=== PATIENT | female | born 1995 | race Caucasian/White ===

== ENCOUNTER 2017-03-31 07:02 | Inpatient (IN) | payer BC, OTHER ==
[2017-03-31] MEDS ORDERED: fentaNYL 100 MCG/2 ML SDV IVPUSH PRN (07:20)
[2017-03-31] MEDS ORDERED: Ondansetron 4 MG/2 ML SDV IV PRN (07:20)
[2017-03-31] MEDS ORDERED: Acetaminophen 325 MG Tab PO PRN (07:20)
[2017-03-31] MEDS ORDERED: Calcium Carbonate 500 MG Tab.Chew PO PRN (07:20)
[2017-03-31] MEDS ORDERED: Sodium Chloride 0.9% 10 ML Syringe FLUSH PRN (07:20)
[2017-03-31] MEDS ORDERED: Misoprostol 50 MCG (1/2 of 100 MCG) Tab VAG PRN (07:30)
[2017-03-31] MEDS ORDERED: Misoprostol 50 MCG (1/2 of 100 MCG) Tab ONE (07:45)
[2017-03-31] MEDS ORDERED: Lactated Ringers 500 ML IV ONE (08:00)
[2017-03-31] MEDS: Misoprostol 50 MCG (1/2 of 100 MCG) Tab VAG SCH ×4 (08:14→21:13)
--- NOTE | 2017-03-31 08:34 | PCM.LDHP ---
L&D History of Present Illness - General Date of Service: 03/31/17 (CHRISTIANO-04/04/2017) Admit Problem/Dx: Patient Status Order with Admit Dx/Problem 03/31/17 07:20 Patient Status [ADT] Routine Admission Diagnosis/Problem Admission Diagnosis/Problem Source of Information: Patient History Limitations: Reports: No Limitations - History of Present Illness Improves with: Reports: None Worsens with: Reports: None Associated Symptoms: Reports: N - Related Data Allergies/Adverse Reactions: Allergies Allergy/AdvReac Type Severity Reaction Status Date / Time No Known Allergies Allergy Verified 03/27/17 10:15 Home Medications: Home Meds Vits #93/Iron Fum/FA [ Formula Tablet] 2 tab PO DAILY 03/24/17 [History] Diclofenac Sodium 1 applic TOP BID PRN 03/27/17 [History] Past Medical History - Past Health History Medical/Surgical History: Denies Medical/Surgical History HEENT History: Reports: Impaired 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: Reports: (CHRISTIANO-04/04/2017) : 2 Para: 0 Musculoskeletal History: Reports: Neck Pain, Chronic Other Musculoskeletal History: neck pain - Infectious Disease History Infectious Disease History: Reports: Chicken Pox - Past Surgical History HEENT Surgical History: Reports: None GI Surgical History: Reports: Hernia, Inguinal Musculoskeletal Surgical History: Reports: None Social & Family History - Family History Family Medical History: Noncontributory - Tobacco Use Smoking Status *Q: Never Smoker Second Hand Smoke Exposure: No - Alcohol Use Days Per Week of Alcohol Use: 0 - Recreational Drug Use Recreational Drug Use: No - Living Situation & Occupation Living situation: Reports: Single Occupation: Student H&P Review of Systems - Review of Systems: Review Of Systems: See Below General: Reports: No Symptoms HEENT: Reports: No Symptoms Pulmonary: Reports: No Symptoms Cardiovascular: Reports: No Symptoms Gastrointestinal: Reports: No Symptoms Genitourinary: Reports: No Symptoms Musculoskeletal: Reports: No Symptoms Skin: Reports: No Symptoms Psychiatric: Reports: No Symptoms Neurological: Reports: No Symptoms Hematologic/Lymphatic: Reports: No Symptoms Immunologic: Reports: No Symptoms L&D Exam - Exam Exam: See Below - Vital Signs Weight: 85.275 kg - OB Specific Contraction Intensity: Mild Movement: Active Heart Tones: Present Heart Rate (FHR) Variability: Moderate (6-25 bmp) Presentation: Vertex Estimated Weight: 8lbs 8oz - Bell Score Bell Score Cervix Position: Posterior Bell Score Consistency: Soft Bell Score Effacement: 31-50% Bell Score Dilation: Closed Bell Score Infant's Station: -3 Bell Score Total: 3 - Exam General: Alert, Oriented HEENT: PERRLA, Conjunctiva Clear, EACs Clear, EOMI, Hearing Intact, Mucosa Moist & [place], Nares Patent, Normal Nasal Septum, Posterior Pharynx Clear, Pupils Equal, Pupils Reactive, TMs Clear Neck: Supple, Trachea Midline Lungs: Clear to Auscultation, Normal Respiratory Effort Cardiovascular: Regular Rate, Regular Rhythm Abdomen: Normal Bowel Sounds, Soft, Pelvis Stable Genitourinary: Normal external exam, Normal bimanual exam Back Exam: Normal Inspection, Full Range of Motion Extremities: Normal Inspection Skin: Warm, Dry, Intact Neurological: Cranial Nerves Intact, Reflexes Equal Bilateral DTR: 2+: Patella (L), Patella (R) Psychiatric: Alert, Normal Affect, Normal Mood - Patient Data Lab Results Last 24 hrs: Laboratory Results - last 24 hr 03/31/17 Range/Units 07:40 WBC 13.9 H (4.5-11.0) K/uL RBC 4.68 (3.30-5.50) M/uL Hgb 13.5 (12.0-15.0) g/dL Hct 40.1 (36.0-48.0) % MCV 86 (80-98) fL MCH 29 (27-31) pg MCHC 34 (32-36) % Plt Count 345 (150-400) K/uL Neut % (Auto) 69 H (36-66) % Lymph % (Auto) 22 L (24-44) % [place] % (Auto) 8 H (2-6) % Eos % (Auto) 1 L (2-4) % Baso % (Auto) 0 (0-1) % Result Diagrams: 03/31/17 07:40 - Problem List (1) Elective induction of labor planned SNOMED Code(s): 782723411 ICD Code: [id number] - Status: Acute Current Visit: No (2) SNOMED Code(s): 01047011 ICD Code: Z33.1 - STATE, INCIDENTAL Status: Acute Current Visit : No Qualifiers: Weeks of gestation: 39 weeks Qualified Code(s): Z3A.39 - 39 weeks gestation of (3) Unstable lie of fetus SNOMED Code(s): 29591111 ICD Code: O32.0XX0 - MATERNAL CARE FOR UNSTABLE LIE, NOT APPLICABLE OR UNSP Status: Acute Current Visit: No Qualifiers: Fetus number: single or unspecified fetus Qualified Code(s): O32.0XX0 - Maternal care for unstable lie, not applicable or unspecified Problem List Initiated/Reviewed/Updated: Yes Orders Last 24hrs: Active Orders 24 hr Category Date Time Status Patient Status [ADT] Routine ADT 03/31/17 07:20 Active Ambulate [RC] PER UNIT ROUTINE Care 03/31/17 07:20 Active Communication Order [RC] ASDIRECTED Care 03/31/17 07:20 Active Heart Tones [RC] PER UNIT ROUTINE Care 03/31/17 07:20 Active May Shower [RC] ASDIRECTED Care 03/31/17 07:20 Active Notify Provider Vital Signs [RC] PRN Care 03/31/17 07:20 Active Notify Provider [RC] PRN Care 03/31/17 07:20 Active Up ad Jia [RC] ASDIRECTED Care 03/31/17 07:20 Active Up to Chair [RC] QID Care 03/31/17 07:20 Active VTE/DVT Education [RC] Click to Edit Care 03/31/17 07:24 Active Vital Signs [RC] PER UNIT ROUTINE Care 03/31/17 07:20 Active DRUG SCREEN, URINE [URCHEM] Routine Lab 03/31/17 07:20 Uncollected UA W/MICROSCOPIC [URIN] Routine Lab 03/31/17 07:20 Uncollected Acetaminophen [Tylenol] Med 03/31/17 07:20 Active 650 mg PO Q4H PRN Calcium Carbonate [Tums] Med 03/31/17 07:20 Active 1,000 mg PO Q2H PRN Lactated Ringers [Ringers, Lactated] 500 ml Med 03/31/17 08:00 Active IV ASDIRECTED Misoprostol [Cytotec] Med 03/31/17 08:00 Active 50 mcg VAG Q4H Ondansetron [Zofran] Med 03/31/17 07:20 Active 4 mg IV Q4H PRN Sodium Chloride 0.9% [Saline Flush] Med 03/31/17 07:20 Active 10 ml FLUSH ASDIRECTED PRN fentaNYL [Sublimaze] Med 03/31/17 07:20 Active 100 mcg IVPUSH Q1H PRN DVT/VTE Prophylaxis Reflex [OM.PC] Routine Oth 03/31/17 07:20 Ordered Saline Lock Insert [OM.PC] Routine Oth 03/31/17 07:20 Ordered Resuscitation Status Routine Resus Stat 03/31/17 07:20 Ordered Medication Orders Acetaminophen (Tylenol) 650 mg PO Q4H PRN PRN Reason: Pain (Mild 1-3) and fever Calcium Carbonate/Glycine (Tums) 1,000 mg PO Q2H PRN PRN Reason: Indigestion Fentanyl (Sublimaze) 100 mcg IVPUSH Q1H PRN PRN Reason: Pain (moderate 4-6) Lactated Ringer's (Ringers, Lactated) 500 mls @ 999 mls/hr IV ASDIRECTED ONE Stop: 03/31/17 08:30 Misoprostol (Cytotec) 50 mcg VAG Q4H SHIRA Last Admin: 03/31/17 08:14 Dose: 50 mcg Ondansetron HCl (Zofran) 4 mg IV Q4H PRN PRN Reason: Nausea/Vomiting Sodium Chloride (Saline Flush) 10 ml FLUSH ASDIRECTED PRN PRN Reason: Keep Vein Open Assessment/Plan Comment:: 03/31/2017 21 yo here at 39 3/7 gestational weeks here for an elective induction. Fetus has had unstable lie and has been breech, transverse, and is now US documented vertex so went on and decided to induce while in proper position. Patient agrees with this plan of care SVE-0/30-40%/-3--4 Bishops Score-3 Cytotec 50 mcg placed vaginally at 0815 Labs-Opositive, GBS negative, Rubella Immune, RPR nonreactive, Hep B negative, HIV negative, Hgb-13.5 Plan- Monitor for active labor Intermittent monitoring Up and about for activity Patient may eat regular diet Pain management per patient request If no active labor will place another cytotec in four hours Plan for a vaginal delivery
--- NOTE | 2017-03-31 12:50 | PCM.PNLD ---
Labor Progress Note - VS & Meds Vital Signs: Last Vital Signs Temp 36.2 C 03/31/17 07:20 Pulse 90 03/31/17 09:30 Resp 14 03/31/17 09:30 BP 130/77 03/31/17 09:30 Pulse Ox 96 03/31/17 07:20 Active Medications: Current Medications Acetaminophen (Tylenol) 650 mg PO Q4H PRN PRN Reason: Pain (Mild 1-3) and fever Calcium Carbonate/Glycine (Tums) 1,000 mg PO Q2H PRN PRN Reason: Indigestion Fentanyl (Sublimaze) 100 mcg IVPUSH Q1H PRN PRN Reason: Pain (moderate 4-6) Misoprostol (Cytotec) 50 mcg VAG Q4H SHIRA Last Admin: 03/31/17 12:39 Dose: 50 mcg Ondansetron HCl (Zofran) 4 mg IV Q4H PRN PRN Reason: Nausea/Vomiting Sodium Chloride (Saline Flush) 10 ml FLUSH ASDIRECTED PRN PRN Reason: Keep Vein Open Discontinued Medications Lactated Ringer's (Ringers, Lactated) 500 mls @ 999 mls/hr IV ASDIRECTED ONE Stop: 03/31/17 08:30 Last Admin: 03/31/17 07:48 Dose: 999 mls/hr Misoprostol (Cytotec) 50 mcg VAG Q4H PRN PRN Reason: LABOR INDUCTION Misoprostol (Cytotec) Confirm Administered Dose 50 mcg .ROUTE .STK-MED ONE Stop: 03/31/17 07:46 Last Admin: 03/31/17 08:40 Dose: Not Given - Uterine Contractions Uterine Monitoring Mode: External [place] Contraction Frequency (min): 3-4 Contraction Duration (sec): 80-120 Contraction Intensity: Mild to Moderate Uterine Resting Tone: Soft - Monitoring Monitor Mode: External Ultrasound Heart Rate (FHR) Variability: Moderate (6-25 bmp) - Vaginal Exam Dilation (cm): 0 Effacement (Percent): 50 Station: Ballotable Cervical Position: Midposition Sterile Vaginal Exam Performed By: Kacey Villatoro - Labor Progress (Free Text) Labor Progress: 03/31/2017 SVE-0/50%/-3--4(ballotable) Patient doing well after first dose of cytotec. Second dose placed during SVE Starting to have some regular contractions-patient rating them a 2 on pain scale Has been up and about and on the ball Eating a regular diet FHTs category one Plan- Continue to monitor for active labor Continue to monitor heart tones Continue up and about activity Pain management per patient request Plan for and anticipate a vaginal delivery
[2017-03-31] MEDS ORDERED: Zolpidem 5 MG Tab PO PRN (16:55)
--- NOTE | 2017-03-31 16:55 | PCM.PNLD ---
Labor Progress Note - VS & Meds Vital Signs: Last Vital Signs Temp 37.1 C 03/31/17 15:38 Pulse 106 H 03/31/17 15:38 Resp 16 03/31/17 15:38 BP 140/82 03/31/17 15:38 Pulse Ox 97 03/31/17 12:00 Active Medications: Current Medications Acetaminophen (Tylenol) 650 mg PO Q4H PRN PRN Reason: Pain (Mild 1-3) and fever Calcium Carbonate/Glycine (Tums) 1,000 mg PO Q2H PRN PRN Reason: Indigestion Fentanyl (Sublimaze) 100 mcg IVPUSH Q1H PRN PRN Reason: Pain (moderate 4-6) Misoprostol (Cytotec) 50 mcg VAG Q4H SHIRA Last Admin: 03/31/17 12:39 Dose: 50 mcg Ondansetron HCl (Zofran) 4 mg IV Q4H PRN PRN Reason: Nausea/Vomiting Sodium Chloride (Saline Flush) 10 ml FLUSH ASDIRECTED PRN PRN Reason: Keep Vein Open Discontinued Medications Lactated Ringer's (Ringers, Lactated) 500 mls @ 999 mls/hr IV ASDIRECTED ONE Stop: 03/31/17 08:30 Last Admin: 03/31/17 07:48 Dose: 999 mls/hr Misoprostol (Cytotec) 50 mcg VAG Q4H PRN PRN Reason: LABOR INDUCTION Misoprostol (Cytotec) Confirm Administered Dose 50 mcg .ROUTE .STK-MED ONE Stop: 03/31/17 07:46 Last Admin: 03/31/17 08:40 Dose: Not Given - Uterine Contractions Uterine Monitoring Mode: External [place] Contraction Frequency (min): 1-2 Contraction Duration (sec): 70-90 Contraction Intensity: Mild to Moderate Uterine Resting Tone: Soft - Monitoring Monitor Mode: External Ultrasound Heart Rate (FHR) Variability: Moderate (6-25 bmp) - Vaginal Exam Dilation (cm): 0 Effacement (Percent): 50 Station: Ballotable Cervical Position: Midposition Sterile Vaginal Exam Performed By: Kacey Villatoro - Labor Progress (Free Text) Labor Progress: 03/31/2017 SVE unchanged [place] tachystole at this time so no more cytotec placed Patient tolerating contractions FHTs remain a category one Plan- Continue to monitor for active labor Continue to monitor FHTs Give IV fluid bolus now Pain management per patient request Will initiate Pitocin later when contraction pattern is not tachystole Anticipate and plan for a vaginal delivery
[2017-03-31] MEDS ORDERED: Lactated Ringers 1,000 ML IV ONE (17:00)
[2017-03-31] MEDS ORDERED: Lactated Ringers 500 ML IV SCH (18:45)
--- NOTE | 2017-03-31 21:00 | PCM.PNLD ---
Labor Progress Note - VS & Meds Vital Signs: Last Vital Signs Temp 36.7 C 03/31/17 19:30 Pulse 81 03/31/17 19:30 Resp 18 03/31/17 19:30 BP 141/75 H 03/31/17 19:30 Pulse Ox 97 03/31/17 19:30 Active Medications: Current Medications Acetaminophen (Tylenol) 650 mg PO Q4H PRN PRN Reason: Pain (Mild 1-3) and fever Calcium Carbonate/Glycine (Tums) 1,000 mg PO Q2H PRN PRN Reason: Indigestion Fentanyl (Sublimaze) 100 mcg IVPUSH Q1H PRN PRN Reason: Pain (moderate 4-6) Oxytocin/Sodium Chloride (Pitocin In Ns 20 Units/1,000 Ml) 20 unit in 1,000 mls @ 6 mls/hr IV TITRATE SHIRA; 2 MUNITS/MIN PRN Reason: Protocol Lactated Ringer's (Ringers, Lactated) 500 mls @ 999 mls/hr IV ASDIRECTED SHIRA Misoprostol (Cytotec) 50 mcg VAG Q4H SHIRA Last Admin: 03/31/17 17:20 Dose: Not Given Ondansetron HCl (Zofran) 4 mg IV Q4H PRN PRN Reason: Nausea/Vomiting Sodium Chloride (Saline Flush) 10 ml FLUSH ASDIRECTED PRN PRN Reason: Keep Vein Open Zolpidem Tartrate (Ambien) 10 mg PO BEDTIME PRN PRN Reason: Sleep Stop: 04/01/17 22:00 Discontinued Medications Lactated Ringer's (Ringers, Lactated) 500 mls @ 999 mls/hr IV ASDIRECTED ONE Stop: 03/31/17 08:30 Last Admin: 03/31/17 07:48 Dose: 999 mls/hr Lactated Ringer's (Ringers, Lactated) 1,000 mls @ 999 mls/hr IV BOLUS ONE Stop: 03/31/17 18:00 Last Admin: 03/31/17 17:32 Dose: 999 mls/hr Misoprostol (Cytotec) 50 mcg VAG Q4H PRN PRN Reason: LABOR INDUCTION Misoprostol (Cytotec) Confirm Administered Dose 50 mcg .ROUTE .STK-MED ONE Stop: 03/31/17 07:46 Last Admin: 03/31/17 08:40 Dose: Not Given - Uterine Contractions Uterine Monitoring Mode: External [place] Contraction Frequency (min): 1-1.5 Contraction Duration (sec): 90 Contraction Intensity: Mild to Moderate Uterine Resting Tone: Soft - Monitoring Monitor Mode: External Ultrasound Heart Rate (FHR) Variability: Moderate (6-25 bmp) - Vaginal Exam Dilation (cm): 0 Effacement (Percent): 50 Station: Ballotable Cervical Position: Midposition Sterile Vaginal Exam Performed By: Kacey Villatoro - Labor Progress (Free Text) Labor Progress: 03/31/2017 SVE again unchanged Contraction pattern tachystole still FHTs category one but at times is a category two with minimal variability Pain well controlled and mainly in her back Position of baby is now OP Plan- Going to have patient take a tub bath and then an Ambien to rest Continue to monitor for active labor Continue to monitor FHTs Will let patient rest then start Pitocin at 0400 Plan and anticipate vaginal delivery
[2017-03-31] MEDS ORDERED: cefTRIAXone 2 GM in Sodium Chloride 0.9% 50 ML IV SCH (22:00)
--- NOTE | 2017-04-01 04:22 | PCM.PNLD ---
Labor Progress Note - VS & Meds Vital Signs: Last Vital Signs Temp 36.7 C 03/31/17 19:30 Pulse 81 03/31/17 19:30 Resp 18 03/31/17 19:30 BP 141/75 H 03/31/17 19:30 Pulse Ox 97 03/31/17 19:30 Active Medications: Current Medications Acetaminophen (Tylenol) 650 mg PO Q4H PRN PRN Reason: Pain (Mild 1-3) and fever Calcium Carbonate/Glycine (Tums) 1,000 mg PO Q2H PRN PRN Reason: Indigestion Cephalexin (Keflex) 500 mg PO BID SHIRA Fentanyl (Sublimaze) 100 mcg IVPUSH Q1H PRN PRN Reason: Pain (moderate 4-6) Oxytocin/Sodium Chloride (Pitocin In Ns 20 Units/1,000 Ml) 20 unit in 1,000 mls @ 6 mls/hr IV TITRATE SHIRA; 2 MUNITS/MIN PRN Reason: Protocol Last Admin: 04/01/17 04:11 Dose: 2 munits/min, 6 mls/hr Lactated Ringer's (Ringers, Lactated) 500 mls @ 999 mls/hr IV ASDIRECTED SHIRA Ceftriaxone Sodium 2 gm/ (Sodium Chloride) 50 mls @ 100 mls/hr IV Q24H SHIRA Last Admin: 03/31/17 22:16 Dose: 100 mls/hr Ondansetron HCl (Zofran) 4 mg IV Q4H PRN PRN Reason: Nausea/Vomiting Sodium Chloride (Saline Flush) 10 ml FLUSH ASDIRECTED PRN PRN Reason: Keep Vein Open Zolpidem Tartrate (Ambien) 10 mg PO BEDTIME PRN PRN Reason: Sleep Stop: 04/01/17 22:00 Last Admin: 03/31/17 21:14 Dose: 10 mg Discontinued Medications Lactated Ringer's (Ringers, Lactated) 500 mls @ 999 mls/hr IV ASDIRECTED ONE Stop: 03/31/17 08:30 Last Admin: 03/31/17 07:48 Dose: 999 mls/hr Lactated Ringer's (Ringers, Lactated) 1,000 mls @ 999 mls/hr IV BOLUS ONE Stop: 03/31/17 18:00 Last Admin: 03/31/17 17:32 Dose: 999 mls/hr Misoprostol (Cytotec) 50 mcg VAG Q4H PRN PRN Reason: LABOR INDUCTION Misoprostol (Cytotec) Confirm Administered Dose 50 mcg .ROUTE .STK-MED ONE Stop: 03/31/17 07:46 Last Admin: 03/31/17 08:40 Dose: Not Given Misoprostol (Cytotec) 50 mcg VAG Q4H [facility] Last Admin: 03/31/17 21:13 Dose: Not Given - Uterine Contractions Uterine Monitoring Mode: External [place] Contraction Frequency (min): 0 Contraction Duration (sec): 90 Contraction Intensity: Mild to Moderate Uterine Resting Tone: Soft - Monitoring Monitor Mode: External Ultrasound Heart Rate (FHR) Variability: Moderate (6-25 bmp) - Vaginal Exam Dilation (cm): 0 Effacement (Percent): 50 Station: Ballotable Cervical Position: Midposition Sterile Vaginal Exam Performed By: Kacey Villatoro - Labor Progress (Free Text) Labor Progress: 04/01/2017 SVE-dimple/60%/-4 not as ballotable Patient was able to rest for a few hours Contraction pattern more stable FHTs category one at most times, occasional category two due to decrease in variability Patient states pain mostly in her back Plan- Continue to monitor for labor Continue to monitor FHTs Initiate Pitocin per protocol CBC this am Pain management per patient request Plan and anticipate a vaginal delivery
--- NOTE | 2017-04-01 06:57 | PCM.PNLD ---
Labor Progress Note - VS & Meds Vital Signs: Last Vital Signs Temp 37.2 C 04/01/17 04:10 Pulse 113 H 04/01/17 06:00 Resp 16 04/01/17 06:00 BP 138/83 04/01/17 06:00 Pulse Ox 96 04/01/17 06:00 Active Medications: Current Medications Acetaminophen (Tylenol) 650 mg PO Q4H PRN PRN Reason: Pain (Mild 1-3) and fever Calcium Carbonate/Glycine (Tums) 1,000 mg PO Q2H PRN PRN Reason: Indigestion Cephalexin (Keflex) 500 mg PO BID SHIRA Fentanyl (Sublimaze) 100 mcg IVPUSH Q1H PRN PRN Reason: Pain (moderate 4-6) Oxytocin/Sodium Chloride (Pitocin In Ns 20 Units/1,000 Ml) 20 unit in 1,000 mls @ 6 mls/hr IV TITRATE SHIRA; 2 MUNITS/MIN PRN Reason: Protocol Last Titration: 04/01/17 06:10 Dose: 15 mls/hr Lactated Ringer's (Ringers, Lactated) 500 mls @ 999 mls/hr IV ASDIRECTED SHIRA Last Admin: 04/01/17 06:44 Dose: 999 mls/hr Ceftriaxone Sodium 2 gm/ (Sodium Chloride) 50 mls @ 100 mls/hr IV Q24H SHIRA Last Admin: 03/31/17 22:16 Dose: 100 mls/hr Ondansetron HCl (Zofran) 4 mg IV Q4H PRN PRN Reason: Nausea/Vomiting Sodium Chloride (Saline Flush) 10 ml FLUSH ASDIRECTED PRN PRN Reason: Keep Vein Open Zolpidem Tartrate (Ambien) 10 mg PO BEDTIME PRN PRN Reason: Sleep Stop: 04/01/17 22:00 Last Admin: 03/31/17 21:14 Dose: 10 mg Discontinued Medications Lactated Ringer's (Ringers, Lactated) 500 mls @ 999 mls/hr IV ASDIRECTED ONE Stop: 03/31/17 08:30 Last Admin: 03/31/17 07:48 Dose: 999 mls/hr Lactated Ringer's (Ringers, Lactated) 1,000 mls @ 999 mls/hr IV BOLUS ONE Stop: 03/31/17 18:00 Last Admin: 03/31/17 17:32 Dose: 999 mls/hr Misoprostol (Cytotec) 50 mcg VAG Q4H PRN PRN Reason: LABOR INDUCTION Misoprostol (Cytotec) Confirm Administered Dose 50 mcg .ROUTE .STK-MED ONE Stop: 03/31/17 07:46 Last Admin: 03/31/17 08:40 Dose: Not Given Misoprostol (Cytotec) 50 mcg VAG Q4H [facility] Last Admin: 03/31/17 21:13 Dose: Not Given - Uterine Contractions Uterine Monitoring Mode: External [place] Contraction Frequency (min): 2-5 Contraction Duration (sec): 90 Contraction Intensity: Mild Uterine Resting Tone: Soft - Monitoring Monitor Mode: External Ultrasound Heart Rate (FHR) Variability: Moderate (6-25 bmp) - Vaginal Exam Dilation (cm): 0 Effacement (Percent): 50 Station: Ballotable Cervical Position: Midposition Sterile Vaginal Exam Performed By: Kacey Villatoro Vaginal Exam Comment: fingertip - Labor Progress (Free Text) Labor Progress: 04/01/2017 SVE no change since last SVE-head ballotable again FHTs now a category two with no accelerations and minimal variability Contractions regular-patient states she does not feel them Interventions to make FHTs improve not working-decision made to proceed to C- Section Dr. Rodriguez aware and OR team called Plan- Will proceed with a primary IV bolus of LR to continue for FHTs category two May [address] O2 if needed Pitocin to be stopped at this time
[2017-04-01] MEDS ORDERED: cefOXitin 1 GM Vial ONE (07:12)
[2017-04-01] MEDS ORDERED: Oxytocin 10 Units/1 ML SDV ONE ×2 (07:12→07:15)
[2017-04-01] MEDS ORDERED: Sodium Chloride 0.9% 0 ML ONE (07:14)
[2017-04-01] MEDS ORDERED: ePHEDrine 50 MG/ML SDV ONE (07:15)
[2017-04-01] MEDS ORDERED: cefOXitin 2 GM Vial ONE (07:40)
[2017-04-01] MEDS ORDERED: Naloxone 0.4 MG/ML SDV IV PRN (07:42)
[2017-04-01] MEDS ORDERED: HYDROmorphone/Normal Saline 15 MG/30 ML PCA IV PRN (07:42)
[2017-04-01] MEDS ORDERED: Lactated Ringers 1,000 ML ONE (07:53)
[2017-04-01] MEDS ORDERED: Ondansetron 4 MG/2 ML SDV ONE (07:59)
[2017-04-01] MEDS: cefOXitin 2 GM in Sodium Chloride 0.9% 50 ML IV SCH ×3 (11:31→21:18)
[2017-04-01] MEDS: Dextrose 5%-Lactated Ringers 1,000 ML IV SCH ×2 (13:49→19:29)
[2017-04-01] MEDS ORDERED: Cephalexin 250 MG Cap PO SCH (21:00)
[2017-04-01] MEDS: Acetaminophen/HYDROcodone 325-5 MG Tab PO PRN (21:18)
[2017-04-02] MEDS: Acetaminophen/HYDROcodone 325-5 MG Tab PO PRN ×4 (02:55→19:20)
[2017-04-02] MEDS: cefOXitin 2 GM in Sodium Chloride 0.9% 50 ML IV SCH ×4 (03:51→23:08)
[2017-04-02] MEDS: Ibuprofen 600 MG Tab PO PRN ×2 (08:00→19:38)
[2017-04-02] MEDS ORDERED: Magnesium Hydroxide 400 MG/5 ML Susp 30 ML Cup PO ONE ×2 (09:56→10:00)
[2017-04-02] MEDS ORDERED: Levofloxacin/Dextrose 5%-Water 500 MG in Premix Bag 1 BAG IV ONE (20:57)
[2017-04-03] MEDS: cefOXitin 2 GM in Sodium Chloride 0.9% 50 ML IV SCH (04:53)
[2017-04-03] MEDS: Ibuprofen 600 MG Tab PO PRN ×2 (04:57→19:37)
[2017-04-03] MEDS: Acetaminophen/HYDROcodone 325-5 MG Tab PO PRN ×3 (05:53→19:23)
--- NOTE | 2017-04-03 08:18 | PN ---
DATE OF SERVICE: 04/03/2017 SUBJECTIVE: Carolann had a on 04/01/2017. She reports her pain is controlled. She also is being treated for a bladder infection. She has no concerns or questions. Her temp max was 101.5. OBJECTIVE: GENERAL: Carolann Alonzo is a 21-year-old female. VITAL SIGNS: TPR is 99.7, 99, 14. Blood pressure 129/80. HEENT: Negative. NECK: Supple. HEART: Regular rate and rhythm. LUNGS: Clear. ABDOMEN: Dressings dry and intact. EXTREMITIES: Without peripheral edema. ASSESSMENT: sections, 04/01/2017. PLAN: 1. Continue same orders. 2. We will check with Levaquin is passed on breast milk and recommendations are to either discontinue Levaquin or discontinue . 3. We will change to cephalexin 500 mg q.i.d. for 10 days and good pulmonary toilet encouraged. 4. We will evaluate p.r.n. or in 10 days. Blanche Dunaway PA-C /[id number]
[2017-04-03] MEDS: Cephalexin 250 MG Cap PO SCH ×3 (11:32→23:21)
--- NOTE | 2017-04-03 12:21 | PN ---
DATE OF SERVICE: 04/02/2017 The patient has been afebrile with stable vital signs. Hemoglobin has been stable overnight, no significant bleeding noted. She has been switched over to [place] and ibuprofen for pain control and tolerating a regular diet. We will have her get in the shower today and did give her some of milk of magnesia. She will likely be discharged tomorrow. Jerel Rodriguez MD /[id number]
[2017-04-03] MEDS ORDERED: Lanolin 100% Cream 40 GM Tube TOP PRN (15:54)
[2017-04-04] MEDS: Cephalexin 250 MG Cap PO SCH ×2 (04:53→09:44)
[2017-04-04] MEDS ORDERED: Docusate Sodium 100 MG Cap PO PRN ×2 (07:49→09:34)
[2017-04-04] MEDS: Ibuprofen 600 MG Tab PO PRN (07:55)
[2017-04-04 07:57] VITALS: BP 134/84
--- NOTE | 2017-04-05 19:23 | DISCH ---
FINAL DIAGNOSIS: Near term with failure to descend and intolerance to labor. SECONDARY DIAGNOSIS: Urinary tract infection. PROCEDURES: Done on 04/01/2017 was section. SUMMARY: This is a 21-year-old female with her 1st presenting for an induction. She had been scheduled for a section earlier last week with a breech presentation, but baby did rotate and on induction, the baby failed to descend and had some intolerance by evidence of lack of variability during the latter parts of the induction. Given this, a decision was made to proceed with section. This was done on 04/01 without difficulty and viable female was delivered. Postoperatively, the patient had some elevated temps. These may be related to the urinary tract infection which she had coming into the procedure, for which she had been treated with Keflex (Note: A followup urine culture obtained during the hospitalization has now been negative). The baby has been was somewhat slow to begin eating and discharge maybe held today if the baby is not otherwise ready for discharge. Otherwise will be discharged home on 04/04 with medications including [place] 5/325 mg 1 to 2 tabs q.4 hours p.r.n. pain, #50. She will be instructed to take ibuprofen 600 mg p.o. q.i.d. p.r.n. and Keflex 500 mg p.o. q.i.d. x5 days and finish off vitamins. Follow up will be with Dr. Rodriguez in his clinic on 04/12/2017 and then we have Kacey [place] .
--- NOTE | 2017-04-10 15:25 | OR ---
DATE OF PROCEDURE: 04/01/2017 PREOPERATIVE DIAGNOSIS: Near term with failure to descend and routine intolerance to labor. POSTOPERATIVE DIAGNOSIS: Near term with failure to descend and routine intolerance to labor. OPERATIVE PROCEDURE: section (64915). ANESTHESIA: Spinal. CLAMMER: Kacey Villatoro CNM INDICATIONS FOR PROCEDURE: This is a 21-year-old patient, presenting in labor. Despite ongoing labor and induction, the baby has failed to descend and has now developed some intolerance with lack of variability of the heart tones. Otherwise, the baby and mother appeared to be doing well. The plan will be to proceed with a section at this time. Potential risks including bleeding, infection, injury to baby and mother were all reviewed, and the patient wishes to proceed. DETAILS OF PROCEDURE: The patient was taken to the operating room and placed in a supine position. After spinal anesthetic had been placed, a roll was placed underneath the right hip to offload pressure from the vena cava. A Rios catheter was inserted and the abdomen was prepped and draped. A standard Pfannenstiel incision was made and carried down through the skin and subcutaneous tissue and rectus sheath. The subrectus sheath and flaps were then raised superiorly and inferiorly, and the midline peritoneum divided. The peritoneal reflection of the bladder on the uterus was then divided and the bladder dissected downward. A low transverse uterine incision was then made and a viable female was delivered through a vertex presentation. The baby appeared to be more or less facing upward, i.e., occiput posterior position was present likely accounting to some extent from the failure to descend. After cord was cut and routine care given off the field for Kacey Villatoro, the placenta and membranes were delivered without difficulty. IV and intrauterine oxytocin was given along with IV cefoxitin. The uterus was then closed with 2 layers of 2-0 Vicryl stitch as was the peritoneal reflection of the bladder on the uterus. The midline musculature and peritoneum were approximated with #2 Vicryl stitch as was the anterior rectus sheath. The subcutaneous tissues were irrigated with cefoxitin-containing saline solution. The subcutaneous layer of 3-0 Vicryl stitch was then placed and then the skin closed with 4-0 Vicryl subcuticular stitch. Steri-Strips were applied. The patient was taken to the recovery room in satisfactory condition. There were no evident complications. Jerel Rodriguez MD /[id number]
== END 2017-04-04 12:45 | disposition home or self-care (01) | DRG 540 ==
LOC: JP.OB 07:02 → JP.MS 04-01 07:58 → OBSVTOIN 04-01 07:58
PROVIDERS: ADMIT Advanced Practice Midwife; ATTEND Surgery
PROC: 3E033VJ Introduction of Other Hormone into Peripheral Vein, Percutaneous Approach (ICD-10-PCS; principal; 2017-04-01)
PROC: 3E0P7GC Introduction of Other Therapeutic Substance into Female Reproductive, Via Natural or Artificial Opening (ICD-10-PCS; principal; 2017-04-01)
PROC: 10D00Z1 Extraction of Products of Conception, Low, Open Approach (ICD-10-PCS; principal; 2017-04-01)
DX: O76 Abnormality in fetal heart rate and rhythm complicating labor and delivery (principal); O64.8XX0 Obstructed labor due to other malposition and malpresentation, not applicable or unspecified; O75.3 Other infection during labor; O61.8 Other failed induction of labor; N39.0 Urinary tract infection, site not specified; Z3A.39 39 weeks gestation of pregnancy; Z37.0 Single live birth
CPT/HCPCS: 36415; 80305; 81001; 85025; 85027; 87086; 88307; 94762; A9270-GY; J0694; J0696; J1956; J2405; J2590; J7030; J7042; J7050; J7120

== ENCOUNTER 2018-10-02 08:45 | Inpatient (IN) | payer OTHER, BC ==
[2018-11-02] MEDS ORDERED: Lactated Ringers 1,000 ML IV SCH (06:00)
[2018-11-02] MEDS ORDERED: Oxytocin 10 Units/1 ML SDV ONE ×2 (06:34→07:05)
[2018-11-02] MEDS ORDERED: cefOXitin 1 GM Vial ONE (06:35)
[2018-11-02] MEDS ORDERED: Ondansetron 4 MG/2 ML SDV ONE (07:05)
[2018-11-02] MEDS ORDERED: Phenylephrine 1% 10 MG/ML SDV ONE (07:05)
[2018-11-02] MEDS ORDERED: ePHEDrine 50 MG/ML SDV ONE (07:06)
[2018-11-02] MEDS ORDERED: Lactated Ringers 1,000 ML ONE (07:06)
[2018-11-02] MEDS ORDERED: Naloxone 0.4 MG/ML SDV IVPUSH PRN (07:35)
[2018-11-02] MEDS ORDERED: Morphine PF 150 MG/30 ML PCA Syringe IV PRN (07:35)
[2018-11-02] MEDS ORDERED: Sodium Chloride 0.9% 500 ML ONE (07:49)
[2018-11-02] MEDS ORDERED: cefOXitin 2 GM Vial ONE (07:54)
[2018-11-02] MEDS ORDERED: Lanolin 100% Cream 40 GM Tube TOP PRN (08:46)
[2018-11-02] MEDS ORDERED: Ibuprofen 200 MG Tab, 24 Tab Bulk Bottle PO PRN (08:46)
[2018-11-02] MEDS ORDERED: Acetaminophen 325 MG Tab, 50 Tab Bulk Bottle PO PRN (08:46)
[2018-11-02] MEDS ORDERED: Ondansetron 4 MG/2 ML SDV IVPUSH PRN (09:42)
[2018-11-02] MEDS ORDERED: hydrOXYzine HCl 100 MG/2 ML SDV IM PRN (09:43)
[2018-11-02] MEDS: Dextrose 5%-Lactated Ringers 1,000 ML IV SCH ×2 (12:50→18:27)
[2018-11-02] MEDS: cefOXitin 2 GM in Sodium Chloride 0.9% 50 ML IV SCH ×2 (14:20→20:37)
[2018-11-02] MEDS ORDERED: Dextrose 5%-Lactated Ringers 1,000 ML IV SCH (18:35)
[2018-11-03] MEDS: cefOXitin 2 GM in Sodium Chloride 0.9% 50 ML IV SCH (01:53)
[2018-11-03] MEDS: Acetaminophen/HYDROcodone 325-5 MG Tab PO PRN ×2 (04:31→11:30)
[2018-11-03] MEDS: Docusate Sodium 100 MG Cap PO SCH ×2 (10:16→21:52)
[2018-11-03] MEDS ORDERED: Bisacodyl 5 MG Tab PO ONE (21:00)
[2018-11-04 03:48] VITALS: BP 131/76
--- NOTE | 2018-11-04 10:37 | DISCH ---
FINAL DIAGNOSES: 1. Term with history of previous section. 2. Nodular lesion attached to the sigmoid colon, appendix epiploica, and posterior aspect of the uterus. OPERATIVE PROCEDURES: Done on 11/02/2018: 1. Repeat section. 2. Excision of nodular lesion involving the sigmoid colon, appendix epiploica, and posterior aspect of the uterus. SUMMARY: This is a 23-year-old presenting with term and history of previous section with plan to proceed with a repeat section. This was done on the date of admission. A viable female was delivered and had no significant problems postoperatively. On the posterior uterus, there was a nodular lesion of uncertain nature, which appeared to be adherent to the appendix epiploica and also the posterior aspect of the uterus. This was excised. The uterine tube on that side was otherwise undamaged as was the ovary. Postoperatively, the patient had no major problems. She will be discharged home with [place] 5/325 one to two tablets q.4 hours p.r.n. pain, #40, with some 2 doses of milk of magnesia as well as Tylenol and Motrin p.r.n. for pain. Follow up with Blanche Dunaway in [facility] on 11/12/2018 along with Kacey Villatoro CNM, in 1 month.
--- NOTE | 2018-11-04 12:34 | PN ---
DATE OF SERVICE: 11/03/2018 The patient has been afebrile with stable vital signs. Her IV came out, and she is tolerating oral pain medication. At this point, we will add some bowel stimulation today and let her get in the shower. Her hemoglobin is stable at 12.5, and she maybe ready for discharge home tomorrow. Jerel Rodriguez MD /[id number]
--- NOTE | 2018-11-05 14:05 | OR ---
DATE OF PROCEDURE: 11/02/2018 PREOPERATIVE DIAGNOSIS: Term with history of previous section. POSTOPERATIVE DIAGNOSES: 1. Term with history of previous section. 2. Nodular fleshy lesion associated with sigmoid colon appendix epiploica and attached to posterior aspect of uterus. OPERATIVE PROCEDURES: 1. Repeat section ([id number]). 2. Excision of nodular lesion involving the appendix epiploica of the sigmoid colon and adherent to the posterior aspect of the uterus (56419). ANESTHESIA: Spinal. ASSISTANTS: Kacey Villatoro CNM and WALLY Chanel. INDICATION FOR PROCEDURE: This is a 23-year-old presenting for repeat section. Plan is to proceed with the section with a spinal anesthetic. Potential risks including bleeding, infection, injury to the mother and baby were all reviewed and the patient wishes to proceed. DETAILS OF PROCEDURE: The patient was taken to the operating room, placed in a supine position after spinal anesthetic was placed. A roll was positioned underneath the right hip to offload the vena cava. A Rios catheter was inserted, and the abdomen was prepped and draped. Previous transverse Pfannenstiel incision was then reused and carried down through the skin, subcutaneous tissue, and anterior rectus sheath. Subrectus sheath flaps were then raised superiorly and inferiorly and the midline peritoneum divided. Peritoneal reflection of the bladder on the uterus was then divided and reflected downward. A transverse lower uterine segment incision was made, and a viable female was delivered through a vertex presentation. Cord was clamped and cut. Routine care was given off the field for Kacey Villatoro CNM. The placenta and membranes were delivered without difficulty, and IV and intrauterine oxytocin and IV cefoxitin were then administered with good uterine contractions noted. The uterus was then closed with 2 layers of 2-0 Vicryl stitch as was peritoneal reflection of the bladder on the uterus. At this point, the wound was inspected and the area around the back of the uterus for any blood and such. There was a fleshy brown nodular lesion, which was adherent to some extent to the appendix epiploica of the sigmoid colon and also to the posterior aspect of the uterus. This did not appear to be involving the ovary or uterine tube per se and measured around 7 cm in total length. This was then excised and sent for histologic evaluation. This may be some tissue consistent with some endometriosis or complication related to the torsion of the appendix epiploica. At any rate, these lesions were removed by electrocautery and good hemostasis was confirmed. With the uterus back in the abdomen, the midline peritoneum musculature was approximated with #2 Vicryl stitch and the anterior rectus sheath also closed with 2-0 Vicryl stitch. The subcutaneous tissue was then irrigated with cefoxitin-containing saline solution. Subcutaneous tissue was then closed with 2 layers of 2-0 Vicryl stitch, the subdermal tissue with 4-0 Vicryl stitch, and the skin with 4-0 Vicryl subcuticular stitch. Dressing was applied. The patient was taken to the recovery room in satisfactory condition. There were no evident complications. Jerel Rodriguez MD /[id number]
== END 2018-11-04 12:00 | disposition home or self-care (01) | DRG 788 ==
LOC: JP.SDSSCHI 11-02 05:31 → JP.SDS 11-02 05:31 → EDSTATUS 11-02 07:15 → JP.MS 11-02 07:51
PROVIDERS: ADMIT Surgery; ATTEND Surgery
PROC: 0DBW0ZZ Excision of Peritoneum, Open Approach (ICD-10-PCS; principal; 2018-11-02)
PROC: 10D00Z1 Extraction of Products of Conception, Low, Open Approach (ICD-10-PCS; principal; 2018-11-02)
DX: O34.211 Maternal care for low transverse scar from previous cesarean delivery (principal); N85.8 Other specified noninflammatory disorders of uterus; Z37.0 Single live birth; O75.89 Other specified complications of labor and delivery; Z3A.39 39 weeks gestation of pregnancy
CPT/HCPCS: 36415; 80305-QW; 85027; 86850; 86900; 86901; 94762; A9270-GY; J0694; J2270; J2370; J2405; J2590; J7040; J7042; J7050; J7120

== ENCOUNTER 2022-08-04 19:57 | Emergency (ER) | payer BC, OTHER ==
[2022-08-04] MEDS ORDERED: Diltiazem 120 MG Cap.CD PO ONE (22:25)
[2022-08-04] MEDS ORDERED: Propranolol 40 MG Tab PO STA (22:26)
[2022-08-04 22:57] VITALS: BP 135/87
[2022-08-04 23:38] VITALS: PULSE 121
== END 2022-08-04 23:38 | disposition home or self-care (01) ==
LOC: JP.ED 19:57
DX: R00.0 Tachycardia, unspecified (principal); F41.9 Anxiety disorder, unspecified; Z79.899 Other long term (current) drug therapy
CPT/HCPCS: 36415; 80048; 84439; 84443; 84484; 85025; 93005; 99285; A9270